=== PATIENT | female | born 1990 | race Caucasian/White ===

== ENCOUNTER 2018-06-21 15:41 | Emergency (ER) | payer BC ==
[~2018-06-21] VITALS: Ht 165.1 cm; Wt 81.8 kg
[2018-06-21 15:44] VITALS: BP 177/110
[2018-06-21] MEDS ORDERED: PROZAC40 MG PO (17:05)
[2018-06-21] MEDS ORDERED: ZITHROMAX Z PA250 MG PO (19:03)
[2018-06-21] MEDS ORDERED: FLEXERIL 1010 MG/TAB PO (19:03)
[2018-06-21 19:20] VITALS: PULSE 94; TEMP 98.6
== END 2018-06-21 19:20 | disposition home or self-care (01) ==
LOC: COL.ER 15:41
DX: R05 Cough (principal); M62.830 Muscle spasm of back; F32.9 Major depressive disorder, single episode, unspecified
CPT/HCPCS: J1885

== ENCOUNTER → 2019-11-26 | Outpatient (CLI) | payer BC ==
[~2019-11-26] MED LIST: FLEXERIL 1010 MG/TAB PO; PROZAC40 MG PO; ZITHROMAX Z PA250 MG PO
== END ==
LOC: COL.LAB 15:00
DX: Z20.828 Contact with and (suspected) exposure to other viral communicable diseases (principal)